=== PATIENT | female | born 1970 | race Caucasian/White ===

== ENCOUNTER → 2022-03-12 | Outpatient (CLI) | payer BC | LOC: KOH-I 15:18 | DX: M25.511 Pain in right shoulder (principal) | CPT/HCPCS: 73030 ==

== ENCOUNTER → 2022-03-28 | Outpatient (CLI) | payer BC | LOC: KOH-I 09:00 | DX: M25.511 Pain in right shoulder (principal); M75.51 Bursitis of right shoulder | CPT/HCPCS: 73221 ==